=== PATIENT | male | born 1990 | race African-American/Black ===

== ENCOUNTER 2016-11-26 18:27 | Emergency (ER) | payer OTHER ==
[~2016-11-26] VITALS: Ht 165.1 cm; Wt 68.9 kg
[2016-11-26] MEDS ORDERED: NS 1,000 ML IV ONE (21:45)
[2016-11-26 22:04] LABS: BASO % 0.5 % (0.0-1.0); EOS # 0.2 K/mm3 (0.0-0.50); EOS % 3.7 % (0.0-3.0); LARGE UNSTAINED CELL # 0.2 K/mm3 (0.0-0.4); LYMPH # 2.8 K/mm3 (1.5-6.5); LYMPH % 55.8 % (24.0-44.0); MEAN CORPUSCULAR HEMOGLOBIN 32.1 pg (27.0-33.0); MEAN CORPUSCULAR VOLUME 91.9 fl (80.0-96.0); MONO # 0.2 K/mm3 (0.0-0.8); MONO % 4.5 % (0.0-5.0); NEUTROPHILS # 1.6 K/mm3 (1.8-7.7); NEUTROPHILS % 31.5 % (36.0-66.0); PLATELET COUNT, AUTOMATED 192 k/mm3 (150-450); RED CELL DISTRIBUTION WIDTH 12.3 % (11.5-14.5)
[2016-11-26 22:17] LABS: ANION GAP 5 MEQ/L (8-16); BLOOD UREA NITROGEN 15 MG/DL (7-18); CALCIUM LEVEL 8.5 MG/DL (8.5-10.1); CARBON DIOXIDE LEVEL 32 MEQ/L (21-32); CHLORIDE LEVEL 103 MEQ/L (98-107); GLOMERULAR FILTRATION RATE > 60.0 (>60); GLUCOSE, FASTING 104 MG/DL (70-105); SODIUM LEVEL 140 MEQ/L (136-145)
[2016-11-26 23:45] VITALS: O2SAT 98
[2016-11-27 00:05] VITALS: BP 132/77
[2016-11-27] MEDS ORDERED: ACETAMINOPHEN TAB 650MG DOSE (2X325MG) PO ONE (00:15)
--- NOTE | 2016-11-27 05:59 | ECGEPIP ---
Stationary ECG Study [facility] - ED Test Date: 2016-11-26 Pat Name: SAHRA PAREDES Department: Room: - Gender: M Side Guider: CostelloB: 1990 Requested By: WANDY De León Order Number: [id number] Reading MD: Vincenzo Osborne Measurements Intervals [place] Rate: 60 P: 55 NH: 155 QRS: 19 QRSD: 77 T: 6 QT: 362 QTc: 364 Interpretive Statements SINUS RHYTHM BENIGN EARLY REPOLARIZATION NSTTW ABNORMALITY NO PRIORS Electronically Signed On 11-27-2016 5:58:52 EDT by Vincenzo Osborne
== END 2016-11-27 00:17 | disposition home or self-care (01) ==
LOC: M ED 19:18
DX: I95.1 Orthostatic hypotension (principal)

== ENCOUNTER 2017-04-23 20:39 | Inpatient (IN) | payer OTHER ==
[~2017-04-23] VITALS: Ht 165.1 cm; Wt 72.7 kg
[2017-04-23 21:37] LABS: MEAN CORPUSCULAR HEMOGLOBIN 31.2 pg (27.0-33.0); MEAN CORPUSCULAR VOLUME 86.6 fl (80.0-96.0); RED CELL DISTRIBUTION WIDTH 11.9 % (11.5-14.5); WHITE BLOOD COUNT 6.6 10^3/uL (4.0-10.0)
[2017-04-23 22:14] LABS: ALBUMIN 4.1 GM/DL (3.2-5.2); ALBUMIN/GLOBULIN RATIO 1.32 (1.00-1.93); ALKALINE PHOSPHATASE 99 U/L (45-117); ALT/SGPT 26 U/L (12-78); ANION GAP 8 MEQ/L (8-16); AST/SGOT 23 U/L (15-37); BILIRUBIN,DIRECT 0.1 MG/DL (0.0-0.2); BILIRUBIN,TOTAL 0.5 MG/DL (0.2-1.0); BLOOD UREA NITROGEN 16 MG/DL (7-18); CALCIUM LEVEL 8.9 MG/DL (8.5-10.1); CARBON DIOXIDE LEVEL 27 MEQ/L (21-32); CHLORIDE LEVEL 105 MEQ/L (98-107); CREATININE FOR GFR 1.04 MG/DL (0.70-1.30); GLOMERULAR FILTRATION RATE > 60.0 (>60); GLUCOSE, FASTING 96 MG/DL (70-105); POTASSIUM SERUM 3.8 MEQ/L (3.5-5.1); SODIUM LEVEL 140 MEQ/L (136-145); TOTAL PROTEIN 7.2 GM/DL (6.4-8.2)
[2017-04-23 23:08] LABS: METHADONE URINE NEGATIVE (NEGATIVE)
--- NOTE | 2017-04-23 23:10 | REPUSA ---
CT of the head Clinical history: Headache. Injury. Technique: Multiple axial CT images were obtained through the head without administration of contrast . Findings: The ventricles and sulci are symmetric bilaterally. There is no evidence of acute hemorrhag e or infarct. There is no midline shift, mass effect, or extra-axial fluid collection. The osseous st ructures are unremarkable. The visualized paranasal sinuses and mastoid air cells are clear. Impression: Negative study.
--- NOTE | 2017-04-24 08:29 | ECGEPIP ---
Stationary ECG Study [facility] - ED Test Date: 2017-04-24 Pat Name: SAHRA PAREDES Department: Room: - Gender: M Mortgage Loan Reviewer: rn : 1990 Requested By: LUZ Farah Order Number: [id number] Reading MD: Kandace Apodaca Measurements Intervals [place] Rate: 52 P: 40 WI: 156 QRS: 3 QRSD: 94 T: 5 QT: 385 QTc: 359 Interpretive Statements SINUS BRADYCARDIA NSTTW ABNORMALITY ?EARLY REPOLARIZATION - CLINICAL CORRELATION Electronically Signed On 04-24-2017 8:29:09 EDT by Kandace Apodaca
[2017-04-24 16:55] VITALS: BP 133/89
[2017-04-24] MEDS ORDERED: OLANZapine ORAL DISINTEGRATING TAB 5MG PO PRN (17:45)
[2017-04-24] MEDS ORDERED: MAALOX 30 ML SUSP *UDC PO PRN (17:45)
[2017-04-24] MEDS ORDERED: traZODone 50 MG TAB PO PRN (17:45)
[2017-04-24] MEDS ORDERED: MOM 30ML SUSPENSION UDC PO PRN (17:45)
[2017-04-24] MEDS ORDERED: ACETAMINOPHEN TAB 650MG DOSE (2X325MG) PO PRN (17:45)
[2017-04-25 06:00] VITALS: BP 158/67
[2017-04-25 06:52] LABS: MEAN CORPUSCULAR HEMOGLOBIN 31.2 pg (27.0-33.0); MEAN CORPUSCULAR HGB CONC 35.4 g/dl (32.0-36.5); MEAN CORPUSCULAR VOLUME 88.2 fl (80.0-96.0); RED CELL DISTRIBUTION WIDTH 11.9 % (11.5-14.5); WHITE BLOOD COUNT 5.4 10^3/uL (4.0-10.0)
[2017-04-25 07:09] LABS: ALBUMIN/GLOBULIN RATIO 1.25 (1.00-1.93); ALKALINE PHOSPHATASE 105 U/L (45-117); ALT/SGPT 25 U/L (12-78); ANION GAP 8 MEQ/L (8-16); AST/SGOT 15 U/L (15-37); BILIRUBIN,TOTAL 0.6 MG/DL (0.2-1.0); BLOOD UREA NITROGEN 13 MG/DL (7-18); CALCIUM LEVEL 9.3 MG/DL (8.5-10.1); CARBON DIOXIDE LEVEL 30 MEQ/L (21-32); CHLORIDE LEVEL 103 MEQ/L (98-107); CREATININE FOR GFR 1.15 MG/DL (0.70-1.30); GLOMERULAR FILTRATION RATE > 60.0 (>60); GLUCOSE, FASTING 101 MG/DL (70-105); POTASSIUM SERUM 4.2 MEQ/L (3.5-5.1); SODIUM LEVEL 141 MEQ/L (136-145); TOTAL PROTEIN 7.2 GM/DL (6.4-8.2)
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
[2017-04-25 18:00] VITALS: BP 141/70
[2017-04-25 20:00] VITALS: BP 138/76
[2017-04-25] MEDS: MIRTAZAPINE 15 MG TAB PO SCH (20:31)
[2017-04-26 07:00] VITALS: BP 137/59
--- NOTE | 2017-04-26 09:31 | MHIPNPDOC ---
[facility] Progress Note Progress Note DATE OF SERVICE: 04/26/17 HISTORY: day 3 of admission for vague suicidal thoughts, self-harm (banging head ) VITAL SIGNS: See below. NEW TEST RESULTS: na CURRENT MEDICATIONS: See below. MENTAL STATUS EXAMINATION: General appearance: Patient is a 26-year old male, who is short in stature, wears glasses, dark complexion, good eye contact, hospital attire, cooperative Speech: spontaneous, southern accent. Thought processes: linear Thought content: appropriate Abstract reasoning and computation: good Description of associations: good Description of abnormal or psychotic thoughts: no psychotic symptoms illicited, Judgment: fair Insight: good Orientation: well oriented. Recent and remote memory: fair, does not recall what happened after he banged his head. CT scan done here. Attention span and concentration: mostly good but if distracted at work or interrupted he does not perform well and his concentration is lacking. Fund of knowledge: Full. Mood: "worried about job" Affect: anxious. DIAGNOSES: 1. adjustment disorder with mixed anxiety and depression 2. insomnia ASSESSMENT:EMI meeting at 11:30 today, pt participated fully and explained his thoughts regarding his work performance. He indicated he had a conversation last night with a peer who is willing to step in and give him some support. Abilio feels he needs to set aside his negative thinking and his lack of self- confidence and he will do a better job. He indicated he is no longer working 2 jobs as previously thought. He received information about his PT test that he was not aware of from [employer]. Overall he feels more at ease and confident he can return to work and do the job he is expected to do. Pt is not feeling suicidal or homicidal. He reports improved sleep with Mirtazapine but needs a few days to get used to it. denies anxiety and depression. Attending programming. ADL's good. MANAGEMENT PLAN: monitor sleep, enc self-esteem and self-confidence, positive thinking, milieu therapy. Will likely be ready for discharge on Saturday. Since EMI meeting completed will only need to have escort. TIME SPENT: 25 minutes. Vital Signs Vital Signs Date Time Temp Pulse Resp B/P (MAP) Pulse Ox O2 Delivery O2 Flow Rate FiO2 04/26/17 07:00 98.6 62 18 137/59 (85) 04/25/17 11:26 Room Air 04/24/17 15:01 98 Current Medications Current Medications Acetaminophen (Tylenol Tab) 650 mg Q6HP PRN PO HEADACHE or DISCOMFORT Last administered on 04/25/17 12:21; Start 04/24/17 at 17:45; Stop 05/24/17 at 17 :44 Al Hydrox/Mg Hydrox/Simethicone (Mylanta) 30 ml Q4HP PRN PO HEARTBURN/ INDIGESTION; Start 04/24/17 at 17:45; Stop 05/24/17 at 17:44 Home Med (Med Rec Complete!) ASDIRECTED XX ; Start 04/24/17 at 10:00; Stop at 10:00; Status DC Magnesium Hydroxide (Milk Of Magnesia) 30 ml DAILYPRN PRN PO CONSTIPATION; Start 04/24/17 at 17:45; Stop 05/24/17 at 17:44 Mirtazapine (Remeron) 15 mg QHS PO Last administered on 04/25/17 20:31; Start 04/25/17 at 21:00; Stop 05/25/17 at 20:59 Olanzapine (ZyPREXA ZYDIS) 5 mg Q4HP PRN PO ANXIETY/AGITATION; Start 04/24 at 17:45; Stop 05/24/17 at 17:44 Trazodone HCl (Desyrel) 50 mg QHSP PRN PO INSOMNIA; Start 04/24/17 at 17:45; Stop 05/24/17 at 17:44 Allergies Coded Allergies: No Known Allergies (Unverified , 11/26/16) Mona Daniels Apr 26, 2017 09:31
[2017-04-26 18:00] VITALS: BP 128/58
[2017-04-26] MEDS: MIRTAZAPINE 15 MG TAB PO SCH (20:47)
[2017-04-27 07:09] VITALS: BP 131/65
--- NOTE | 2017-04-27 15:46 | MHIPN ---
DATE: 04/27/2017 CHIEF COMPLAINT: Feels better. SUBJECTIVE: Seen for followup in the presence of staff. Says feels better, less anxious, less depressed, more confident. Has been in touch with his family on a regular basis. MENTAL STATUS EXAMINATION: He is neat and cooperative. No agitation. Coherent. Affect is reactive, fairly broad. He denies any thoughts of harming himself or anyone else. No evidence of any psychosis. Cognition grossly intact. Judgment good. Insight is possibly improved. ASSESSMENT: Adjustment disorder with mixed anxiety and depression. PLAN: Continue current care and observations. At present, would encourage patient to participate in activities in the unit. VITAL SIGNS: Blood pressure 131/65, pulse 72, temperature 98.5.
[2017-04-27 18:24] VITALS: BP 130/77
[2017-04-27] MEDS: MIRTAZAPINE 15 MG TAB PO SCH (20:52)
[2017-04-28 06:00] VITALS: BP 131/66
[2017-04-28 09:28] VITALS: BP 131/66
--- NOTE | 2017-04-28 17:40 | MHIPN ---
DATE: 04/28/2017 CHIEF COMPLAINT: Feels good. SUBJECTIVE: Seen for followup. Indicates feels good, and is looking forward to leaving the hospital, moods are better. MENTAL STATUS EXAMINATION: Neat and cooperative. No agitation. No psychomotor retardation. He is coherent. Affect is reactive, fairly broad. No evidence of any thoughts of harming himself or anyone else. Cognition grossly intact. Judgment good. Insight improved. ASSESSMENT: Adjustment disorder with mixed anxiety and depression. PLAN: Continue current care, and I would suggest reassessing the need for an antidepressant. VITAL SIGNS: Blood pressure 131/66, pulse 55, temperature 96.8.
[2017-04-28 18:00] VITALS: BP 126/66
[2017-04-28] MEDS: MIRTAZAPINE 15 MG TAB PO SCH (21:05)
[2017-04-29 06:34] VITALS: BP 129/55
--- NOTE | 2017-04-29 08:55 | MHDSPDOC ---
[facility] Discharge Summary Discharge Summary DATE OF ADMISSION: Apr 24, 2017 at 15:22 DATE OF DISCHARGE: Apr 29, 2017 DISCHARGE DIAGNOSES: 1. adjustment disorder with mixed anxiety and depression 2. insomnia REASON FOR ADMISSION: Patient is a 26-year-old male, who was directed to seek admission by his EMI who feared he was suicidal. Pt was upset at work and started banging his head on the wall, a locker and some other objects out of frustration. Pt denies plan or intent of suicide but was unable to contract for safety in the ED. Pt has no prior psychiatric history. Pts problems began after he failed his PT test due to hip pain. He was referred to PT which helped but he has not had his re-test yet. 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 He was not able to physically attend the inventory review with command when the previous person left because he had to attend to the cooking duties. Since that person's departure and his demands fulfilling 2 roles he feels he is not performing well at either job. He is overwhelmed, forgetting things, making errors, not sleeping, feels very stressed and feels he cannot leave his job to implement stress reduction techniques of deep breathing or going for a walk. If things are going to continue this way he would prefer to leave his life and resume his education in business administration. CONSULTANTS INVOLVED:na TREATMENT AND PROGRESS ON THE UNIT : pt did well on the unit., he cooperated with attending programming and following unit rules. He interacted appropriately with peers and staff. No behavior challenges. Pt ate and slept well. Pt had sleeping problems when he first arrived that were immediately and effectively address by adding mirtazapine. No side effects to medication. Sleep improvement continued until he was able to fall asleep quickly and remain asleep. He asked to be discharged on the medication. Pts mood improved shortly after a EMI meeting where he could represent his side off the story HOSPITAL COURSE: uneventful, VS remained stable, Labs WNL. DISCHARGE ASSESSMENT:pt is not suicidal or homicidal. He is looking forward to getting back into life. MENTAL STATUS EXAMINATION ON DISCHARGE: General appearance: Patient is a 26-year old male, who is short in stature, wears glasses, dark complexion, good eye contact, polo shirt and shorts, cooperative Speech: spontaneous, southern accent. Thought processes: linear Thought content: appropriate Abstract reasoning and computation: good Description of associations: good Description of abnormal or psychotic thoughts: no psychotic symptoms illicited, Judgment: fair Insight: good Orientation: well oriented. Recent and remote memory: fair, does not recall what happened after he banged his head. CT scan done here. Attention span and concentration: mostly good but if distracted at work or interrupted he does not perform well and his concentration is lacking. Fund of knowledge: Full. Mood: euthymic Affect: congruent, smiling MEDICATIONS ON DISCHARGE: - Mirtazapine for insomnia PLAN/FOLLOWUP ARRANGEMENTS: [facility] for med mgt and therapy, meds could be done by PCP. The amount of time spent in the coordination of care for this patient was approximately 28 minutes. Vital Signs/I&Os Vital Signs Date Time Temp Pulse Resp B/P (MAP) Pulse Ox O2 Delivery O2 Flow Rate FiO2 04/29/17 06:34 97.9 63 20 129/55 (79) 04/28/17 09:28 98 Room Air Medications Scheduled Mirtazapine (Mirtazapine) 15 Mg Tab, 15 MG PO QHS for INSOMNIA for 7 Days, #7 Allergies Coded Allergies: No Known Allergies (Unverified , 11/26/16) Mona Daniels Apr 29, 2017 08:55
[2017-04-29] MEDS ORDERED: MIRT15TA3 PO (08:58)
== END 2017-04-29 13:30 | disposition home or self-care (01) | DRG 882 ==
LOC: M ED 20:39 → M ED INP 04-24 15:22 → M ED 04-24 15:35 → M PSY 04-24 15:45
PROVIDERS: ADMIT Psychiatry & Neurology Psychiatry; ATTEND Psychiatry & Neurology Psychiatry
DX: F43.23 Adjustment disorder with mixed anxiety and depressed mood (principal); J45.909 Unspecified asthma, uncomplicated

== ENCOUNTER 2017-08-13 08:47 | Emergency (ER) | payer OTHER ==
[2017-08-13] MEDS: ONDANSETRON 4 MG ORAL DISINTEGRATING TAB (S0181) PO (09:45)
[2017-08-13 10:31] LABS: INFLUENZA A AMPLIFICATION NEGATIVE (NEGATIVE); INFLUENZA B AMPLIFICATION NEGATIVE (NEGATIVE)
== END 2017-08-13 11:16 | disposition home or self-care (01) ==
LOC: M ED 08:47
DX: R11.2 Nausea with vomiting, unspecified (principal); R19.7 Diarrhea, unspecified; Z87.891 Personal history of nicotine dependence; Z79.899 Other long term (current) drug therapy
CPT/HCPCS: 87507

== ENCOUNTER 2017-11-15 16:13 | Emergency (ER) | payer OTHER ==
[2017-11-15] MEDS: METHOCARBAMOL 1,000 MG/10 ML VIAL (J2800) IM (17:11)
[2017-11-15] MEDS: GABAPENTIN 300 MG CAP PO (18:11)
== END 2017-11-15 18:22 | disposition home or self-care (01) ==
LOC: M ED 16:13
DX: M62.830 Muscle spasm of back (principal); Z87.891 Personal history of nicotine dependence; Z88.8 Allergy status to other drugs, medicaments and biological substances; Z79.899 Other long term (current) drug therapy
CPT/HCPCS: J2800

== ENCOUNTER → 2017-11-21 | Outpatient (CLI) | payer OTHER ==
[~2017-11-21] MED LIST: CONRAY-43 43% 50ML VIAL (Q9960) As Ordered; LIDOCAINE 1% MDV 20ML VIAL As Ordered; TRIAMCINOLONE ACETONIDE SUSP 40 MG/ML VIAL (J3301) As Ordered
== END ==
LOC: M RADPRO 09:55
DX: M25.552 Pain in left hip (principal); S73.192A Other sprain of left hip, initial encounter; Y92.89 Other specified places as the place of occurrence of the external cause; Y93.89 Activity, other specified; X58.XXXA Exposure to other specified factors, initial encounter; Y99.8 Other external cause status
CPT/HCPCS: 20610

== ENCOUNTER → 2018-05-12 | Outpatient (REF) | payer OTHER ==
[2018-05-12 14:14] LABS: BASO % 0.2 % (0.0-1.0); EOS # 0.1 10^3/uL (0.0-0.50); EOS % 1.4 % (0.0-3.0); HEMATOCRIT 44.9 % (42.0-52.0); HEMOGLOBIN 15.6 g/dl (13.5-17.5); IMMATURE GRANULOCYTE % 0.5 % (0-3.0); LYMPH # 2.2 10^3/uL (1.5-6.5); LYMPH % 36.9 % (24.0-44.0); MEAN CORPUSCULAR HEMOGLOBIN 30.5 pg (27.0-33.0); MEAN CORPUSCULAR HGB CONC 34.7 g/dl (32.0-36.5); MEAN CORPUSCULAR VOLUME 87.7 fl (80.0-96.0); MONO # 0.4 10^3/uL (0.0-0.8); MONO % 5.9 % (0.0-5.0); NEUTROPHILS # 3.3 10^3/uL (1.8-7.7); NEUTROPHILS % 55.1 % (36.0-66.0); PLATELET COUNT, AUTOMATED 210 10^3/uL (150-450); RED BLOOD COUNT 5.12 10^6/uL (4.30-6.10); RED CELL DISTRIBUTION WIDTH 11.9 % (11.5-14.5); WHITE BLOOD COUNT 5.9 10^3/uL (4.0-10.0)
[2018-05-12 14:57] LABS: ALBUMIN/GLOBULIN RATIO 1.05 (1.00-1.93); ALKALINE PHOSPHATASE 104 U/L (45-117); ALT/SGPT 29 U/L (12-78); ANION GAP 10 MEQ/L (8-16); AST/SGOT 15 U/L (7-37); BILIRUBIN,TOTAL 0.4 MG/DL (0.2-1.0); BLOOD UREA NITROGEN 18 MG/DL (7-18); CALCIUM LEVEL 9.2 MG/DL (8.5-10.1); CARBON DIOXIDE LEVEL 27 MEQ/L (21-32); CHLORIDE LEVEL 102 MEQ/L (98-107); CREATININE FOR GFR 1.15 MG/DL (0.70-1.30); GLOMERULAR FILTRATION RATE > 60.0 (>60); GLUCOSE, FASTING 76 MG/DL (70-100); POTASSIUM SERUM 4.5 MEQ/L (3.5-5.1); RHEUMATOID FACTOR QUANT < 10.0 IU/ML (<15.0); SODIUM LEVEL 139 MEQ/L (136-145); TOTAL 25(OH) VITAMIN D 43.7 NG/ML (30.0-100.0); TOTAL PROTEIN 7.8 GM/DL (6.4-8.2)
[2018-05-12 15:14] LABS: ERYTHROCYTE SEDIMENTATION RATE 5 mm/hr (0-15)
[2018-05-13 14:13] LABS: ANTINUCLEAR ANTIBODIES DIRECT Negative (Negative)
== END ==
LOC: M LABNEURO 09:10
DX: R51 Headache (principal)

== ENCOUNTER 2018-06-23 09:22 | Inpatient (IN) | payer OTHER ==
[2018-06-23] MEDS: NICOTINE 21MG/24HR 1 EA TRANSDERMAL TD (09:00)
[2018-06-23 10:21] LABS: HEMATOCRIT 43.8 % (42.0-52.0); HEMOGLOBIN 15.5 g/dl (13.5-17.5); MEAN CORPUSCULAR HEMOGLOBIN 30.9 pg (27.0-33.0); MEAN CORPUSCULAR HGB CONC 35.4 g/dl (32.0-36.5); MEAN CORPUSCULAR VOLUME 87.3 fl (80.0-96.0); PLATELET COUNT, AUTOMATED 178 10^3/uL (150-450); RED BLOOD COUNT 5.02 10^6/uL (4.30-6.10); WHITE BLOOD COUNT 4.6 10^3/uL (4.0-10.0)
[2018-06-23 11:17] LABS: ACETAMINOPHEN LEVEL < 2.0 UG/ML (10.0-30.0); ALBUMIN 3.9 GM/DL (3.2-5.2); ALBUMIN/GLOBULIN RATIO 1.18 (1.00-1.93); ALKALINE PHOSPHATASE 123 U/L (45-117); ALT/SGPT 31 U/L (12-78); ANION GAP 8 MEQ/L (8-16); AST/SGOT 16 U/L (7-37); BILIRUBIN,DIRECT 0.1 MG/DL (0.0-0.2); BILIRUBIN,TOTAL 0.3 MG/DL (0.2-1.0); BLOOD UREA NITROGEN 18 MG/DL (7-18); CALCIUM LEVEL 8.8 MG/DL (8.5-10.1); CARBON DIOXIDE LEVEL 30 MEQ/L (21-32); CHLORIDE LEVEL 103 MEQ/L (98-107); CREATININE FOR GFR 1.16 MG/DL (0.70-1.30); ETHYL ALCOHOL (ETHANOL) < 0.003 % (0.000-0.010); GLOMERULAR FILTRATION RATE > 60.0 (>60); GLUCOSE, FASTING 97 MG/DL (70-100); POTASSIUM SERUM 3.9 MEQ/L (3.5-5.1); SALICYLATE LEVEL < 1.7 MG/DL (5.0-30.0); SODIUM LEVEL 141 MEQ/L (136-145); THYROID STIMULATING HORMONE 0.359 uIU/ML (0.358-3.740); TOTAL PROTEIN 7.2 GM/DL (6.4-8.2)
[2018-06-23 11:40] LABS: AMPHETAMINES LEVEL URINE NEGATIVE (NEGATIVE); BARBITURATES URINE NEGATIVE (NEGATIVE); BENZODIAZEPINES URINE NEGATIVE (NEGATIVE); CANNABINOIDS URINE NEGATIVE (NEGATIVE); COCAINE METABOLITE URINE NEGATIVE (NEGATIVE); METHADONE URINE NEGATIVE (NEGATIVE); OPIATES URINE NEGATIVE (NEGATIVE); PHENCYCLIDINE URINE NEGATIVE (NEGATIVE)
[2018-06-23] MEDS ORDERED: MAALOX 30 ML SUSP *UDC PO (14:15)
[2018-06-23] MEDS ORDERED: MOM 30ML SUSPENSION UDC PO (14:15)
[2018-06-23] MEDS ORDERED: traZODone 50 MG TAB PO (14:15)
[2018-06-23] MEDS: BACLOFEN 10 MG TAB PO (21:55)
[2018-06-23] MEDS: GABAPENTIN 100 MG CAP PO (21:55)
[2018-06-24] MEDS: METAXALONE 800 MG TABLET PO (08:29)
[2018-06-24] MEDS: BACLOFEN 10 MG TAB PO ×2 (08:29→20:54)
[2018-06-24] MEDS: hydroCHLOROthiazide 25 MG TAB PO (08:29)
[2018-06-24] MEDS: GABAPENTIN 100 MG CAP PO ×3 (08:29→20:53)
[2018-06-24] MEDS: NICOTINE 21MG/24HR 1 EA TRANSDERMAL TD (08:30)
[2018-06-24] MEDS: ACETAMINOPHEN TAB 650MG DOSE (2X325MG) PO (14:43)
[2018-06-24] MEDS: QUEtiapine FUMARATE 50 MG TAB PO (20:54)
[2018-06-25] MEDS: NICOTINE 21MG/24HR 1 EA TRANSDERMAL TD (08:35)
[2018-06-25] MEDS: METAXALONE 800 MG TABLET PO (08:36)
[2018-06-25] MEDS: hydroCHLOROthiazide 25 MG TAB PO (08:38)
[2018-06-25] MEDS: GABAPENTIN 100 MG CAP PO ×3 (08:38→20:21)
[2018-06-25] MEDS: BACLOFEN 10 MG TAB PO ×2 (08:38→20:21)
[2018-06-25] MEDS: QUEtiapine FUMARATE 50 MG TAB PO (20:21)
[2018-06-26] MEDS: hydroCHLOROthiazide 25 MG TAB PO (07:01)
[2018-06-26] MEDS: BACLOFEN 10 MG TAB PO ×2 (08:34→21:05)
[2018-06-26] MEDS: GABAPENTIN 100 MG CAP PO ×3 (08:34→21:05)
[2018-06-26] MEDS: METAXALONE 800 MG TABLET PO (08:34)
[2018-06-26] MEDS: NICOTINE 21MG/24HR 1 EA TRANSDERMAL TD (08:35)
[2018-06-26] MEDS: QUEtiapine FUMARATE 25 MG TAB PO (21:05)
[2018-06-27] MEDS: METAXALONE 800 MG TABLET PO (06:38)
[2018-06-27] MEDS: hydroCHLOROthiazide 25 MG TAB PO (06:38)
[2018-06-27] MEDS: GABAPENTIN 100 MG CAP PO (06:38)
[2018-06-27] MEDS: BACLOFEN 10 MG TAB PO (06:38)
[2018-06-27] MEDS: ARIPiprazole 15 MG TAB (AbiLIFY) PO (07:09)
[2018-06-27] MEDS: NICOTINE 21MG/24HR 1 EA TRANSDERMAL TD (07:50)
== END 2018-06-27 07:45 | disposition home or self-care (01) | DRG 885 ==
LOC: M ED 09:22 → M ED INP 14:15 → M PSY 14:43
DX: F31.81 Bipolar II disorder (principal); R45.851 Suicidal ideations; F41.1 Generalized anxiety disorder; J45.909 Unspecified asthma, uncomplicated; I10 Essential (primary) hypertension; M54.5 Low back pain; G89.29 Other chronic pain; M54.2 Cervicalgia; Z79.899 Other long term (current) drug therapy; Z88.8 Allergy status to other drugs, medicaments and biological substances

== ENCOUNTER 2019-08-28 22:22 | Emergency (ER) | payer OTHER ==
[~2019-08-28] VITALS: Ht 165.1 cm; Wt 75.0 kg
[~2019-08-28 22:22] MED LIST changes: +ARIP1TAB10 PO; +BACL10TA2; +BUPR150T3; -CONRAY-43 43% 50ML VIAL (Q9960) As Ordered; +CYCL10TA; +D 50CAP; +DICL75TA; +FLUO20CA22; +GABA-1171; +GABA-843; +HYDR25TAB; -LIDOCAINE 1% MDV 20ML VIAL As Ordered; +META1TAB22; +MIRT15TA3 PO; +QUET1TAB7 PO; -TRIAMCINOLONE ACETONIDE SUSP 40 MG/ML VIAL (J3301) As Ordered; +ZOFR4TAB14 PO
--- NOTE | 2019-08-28 23:42 | REPVR ---
PROCEDURE INFORMATION: Exam: CT Head Without Contrast Exam date and time: 08/28/2019 11:05 PM Age: 29 years old Clinical indication: Injury or trauma; Fall; Initial encounter; Concussion / head injury; Additional info: Syncope TECHNIQUE: Imaging protocol: Computed tomography of the head without contrast. Radiation optimization: All CT scans at this facility use at least one of these dose optimization techniques: automated exposure control; mA and/or kV adjustment per patient size (includes targeted exams where dose is matched to clinical indication); or iterative reconstruction. COMPARISON: CT Head without contrast 04/23/2017 10:40 PM FINDINGS: Brain: Normal. No hemorrhage. Unremarkable white matter. No mass effect. Ventricles: Normal. No ventriculomegaly. Bones/joints: Unremarkable. No acute fracture. Sinuses: Visualized sinuses are unremarkable. No fluid levels. Mastoid air cells: Visualized mastoid air cells are well aerated. Soft tissues: Unremarkable. IMPRESSION: No acute intracranial abnormality. Electronically signed by: Baltazar Carmona On 08/28/2019 23:41:57 PM
--- NOTE | 2019-08-29 00:11 | REPVR ---
PROCEDURE INFORMATION: Exam: CT Cervical Spine Without Contrast Exam date and time: 08/28/2019 11:05 PM Age: 29 years old Clinical indication: Neck pain; Patient HX: Fall; Additional info: Syncope TECHNIQUE: Imaging protocol: Computed tomography images of the cervical spine without contrast. Radiation optimization: All CT scans at this facility use at least one of these dose optimization techniques: automated exposure control; mA and/or kV adjustment per patient size (includes targeted exams where dose is matched to clinical indication); or iterative reconstruction. COMPARISON: CT Spine,cervical w/o contrast 11/15/2017 5:15 PM FINDINGS: Vertebrae: No acute fracture. Reversal of normal cervical lordosis likely secondary to muscular spasm or positioning. Discs/Spinal canal/Neural foramina: No disc herniations. No spinal canal stenosis. No neural foraminal narrowing. Soft tissues: Unremarkable. Lungs: Lung apices are normal. IMPRESSION: No acute findings. Electronically signed by: Purnima Jordan On 08/29/2019 00:11:15 AM
[2019-08-29 00:15] LABS: BASO % 0.3 % (0.0-1.0); EOS # 0.1 10^3/uL (0.0-0.5); HEMATOCRIT 43.1 % (42.0-52.0); HEMOGLOBIN 15.5 g/dl (13.5-17.5); LYMPH % 33.7 % (24.0-44.0); MEAN CORPUSCULAR HEMOGLOBIN 30.8 pg (27.0-33.0); MEAN CORPUSCULAR VOLUME 85.7 fl (80.0-96.0); MONO # 0.5 10^3/uL (0.0-0.8); MONO % 7.6 % (0.0-5.0); NEUTROPHILS # 3.3 10^3/uL (1.5-8.5); NEUTROPHILS % 55.6 % (36.0-66.0); PLATELET COUNT, AUTOMATED 207 10^3/uL (150-450); RED BLOOD COUNT 5.03 10^6/uL (4.30-6.10); WHITE BLOOD COUNT 5.9 10^3/uL (4.0-10.0)
[2019-08-29 00:20] LABS: AMPHETAMINES LEVEL URINE NEGATIVE (NEGATIVE); BARBITURATES URINE NEGATIVE (NEGATIVE); BENZODIAZEPINES URINE NEGATIVE (NEGATIVE); CANNABINOIDS URINE NEGATIVE (NEGATIVE); COCAINE METABOLITE URINE NEGATIVE (NEGATIVE); METHADONE URINE NEGATIVE (NEGATIVE); OPIATES URINE NEGATIVE (NEGATIVE); PHENCYCLIDINE URINE NEGATIVE (NEGATIVE)
[2019-08-29 00:35] LABS: BLOOD UREA NITROGEN 14 MG/DL (7-18); CALCIUM LEVEL 8.7 MG/DL (8.5-10.1); CARBON DIOXIDE LEVEL 28 MEQ/L (21-32); CHLORIDE LEVEL 105 MEQ/L (98-107); CREATININE FOR GFR 0.98 MG/DL (0.70-1.30); ETHYL ALCOHOL (ETHANOL) < 0.003 % (0.000-0.010); GLOMERULAR FILTRATION RATE > 60.0 (>60); GLUCOSE, FASTING 105 MG/DL (70-100); POTASSIUM SERUM 3.8 MEQ/L (3.5-5.1); SODIUM LEVEL 138 MEQ/L (136-145)
[2019-08-29 01:46] VITALS: BP 140/74
--- NOTE | 2019-08-29 08:28 | REP ---
Right hand four views : There is no fracture or dislocation. Mineralization and joint spaces are normal. There are no calcifications or foreign bodies. Impression: Negative right hand . Electronically Signed by Virgilio Melton MD 08/29/2019 08:19 A
--- NOTE | 2019-08-30 20:41 | ECGEPIP ---
[facility] - ED Test Date: 2019-08-28 Pat Name: SAHRA PAREDES Department: Room: - Gender: Male Groundskeeper: er : 1990 Requested By: WANDY De León Order Number: [id number] Reading MD: Kandace Apodaca Measurements Intervals [place] Rate: 75 P: 48 ID: [id number] QRS: 4 QRSD: 86 T: 10 QT: 328 QTc: 368 Interpretive Statements SINUS RHYTHM WITH SINUS ARRHYTHMIA INCREASAED RATE 06/24/18 Electronically Signed on 08-30-2019 20:41:23 EST by Kandace Apodaca
== END 2019-08-29 01:50 | disposition home or self-care (01) ==
LOC: M ED 22:22
DX: Z04.1 Encounter for examination and observation following transport accident (principal); R55 Syncope and collapse; S63.91XA Sprain of unspecified part of right wrist and hand, initial encounter; V89.2XXA Person injured in unspecified motor-vehicle accident, traffic, initial encounter; Y92.89 Other specified places as the place of occurrence of the external cause; Y93.89 Activity, other specified; Y99.8 Other external cause status; Z88.8 Allergy status to other drugs, medicaments and biological substances; Z79.899 Other long term (current) drug therapy
CPT/HCPCS: 70450; 72125; 73130; 80048; 80307; 84443; 85025; 93005; 93041; 94760; 99285; G0480

== ENCOUNTER → 2021-01-22 | Outpatient (CLI) | payer OTHER ==
[~2021-01-22] MED LIST changes: +BUPR150T12; -BUPR150T3; +CYCL-707; -CYCL10TA; +GABA-282; -GABA-843; +HYDR-3490; -HYDR25TAB; -QUET1TAB7 PO; +QUET25TA3 PO
--- NOTE | 2021-01-22 19:04 | REP ---
INDICATION: RADHA CHRONIC HIP PAIN. COMPARISON: None. TECHNIQUE: Whole pelvic T1 and STIR images with small [id number] fat-suppressed T2 axial coronal and sagittal images for each hip. FINDINGS: The whole pelvic marrow sequences demonstrate homogeneous L5, sacral and iliac marrow with no abnormalities visible. The acetabular, ischial and hip joint marrow also was grossly unremarkable. There is no evidence of AVN, bone bruise or fracture in either hip. See no hip joint effusion. I see no significant trochanteric tendon or bursitis about either hip at the greater trochanter. Intrinsic and extrinsic hip, pelvic, gluteal and thigh muscles were grossly symmetric and unremarkable without signal abnormality. There is no inguinal adenopathy on either side or mass. Right hip: No evidence of a joint effusion. There is no significant chondromalacia or joint space narrowing. Some subtle irregularity about the superior labrum may reflect some mild labral degeneration. Some linear signal at the acetabular margin with the cortex is seen in a pattern suggesting sublabral sulcus. There is no paralabral sulcus above the joint line. See no loose body. The obturator internus, iliopsoas and hamstring tendons and their insertions were grossly unremarkable. Axial images show anterior and posterior sublabral sulci in a symmetric appearance to the left hip on axial projection. I cannot confirm a definite labral tear. I do not see femoral head morphologic abnormality. Left hip: No evidence of a joint effusion. There is no significant chondromalacia or joint space narrowing. Subtle irregularity of labral undersurface may reflect some degeneration and there is also a sublabral sulcus suggested anteriorly and posteriorly axial to lesser extent coronal images. No loose body or osteochondral defect. There is no paralabral sulcus. See no paralabral cyst appearance of the labrum on both sides is identical. The obturator internus, ileo psoas and hamstring tendons and their insertions are grossly unremarkable. I cannot confirm a definite labral tear. I do not see femoral head morphologic abnormality. IMPRESSION: 1. Bilateral hips show minor irregularity of the acetabular labrum that might reflect some mild degeneration. There is also symmetric pattern of anterior and posterior bright linear signal foci on T2 most consistent with sublabral sulcus. I cannot confirm a tear. There is no morphologic abnormality of either femoral head. No AVN, fracture or other marrow signal finding in either hip. 2. No joint effusion or loose body. No tendinobursitis at the greater trochanters. Other tendons and insertions about the hips symmetric and normal. <Electronically signed by Brandt Young > 01/22/21 [id number]
== END ==
LOC: M RAD 14:31
DX: M25.559 Pain in unspecified hip (principal)

== ENCOUNTER → 2021-02-22 | Outpatient (CLI) | payer OTHER ==
[~2021-02-22] MED LIST changes: +QUET1TAB17 PO; -QUET25TA3 PO
--- NOTE | 2021-02-22 20:29 | REP ---
INDICATION: PAIN. COMPARISON: None. TECHNIQUE: Frontal view of the pelvis with neutral and frog-lateral views of the right and left hip. FINDINGS: No evidence for acute fracture or dislocation. Bilateral hip joints are relatively symmetric and age-appropriate. No significant congenital or overt degenerative changes are appreciated. Surrounding soft tissues normal. IMPRESSION: Essentially normal symmetric appearance of the pelvis/hips. <Electronically signed by Dony Hernandez > 02/22/212024
== END ==
LOC: M SOG 15:13
PROVIDERS: ATTEND Orthopaedic Surgery Adult Reconstructive Orthopaedic Surgery
DX: M25.559 Pain in unspecified hip (principal)

== ENCOUNTER → 2021-07-28 | Outpatient (CLI) | payer OTHER ==
[~2021-07-28] MED LIST changes: +ACET1TAB55 PO; +BUSP10TA PO; +D31000TA2 PO; +DIVA250T67 PO; +FLON1SPR; +GOOD8.6T2 PO; +LORA-243 PO; +REFR0.5D8 OU; +WELLTAB40 PO
== END ==
LOC: M LABSMTC 11:21
PROVIDERS: ATTEND Anesthesiology
DX: Z01.812 Encounter for preprocedural laboratory examination (principal); Z20.822 Contact with and (suspected) exposure to COVID-19

== ENCOUNTER 2021-08-02 08:49 | Day surgery (SDC) | payer OTHER ==
[~2021-08-02] VITALS: Ht 165.1 cm; Wt 79.4 kg
[~2021-08-02 08:49] MED LIST changes: +NS 1,000 ML IV ONE
[2021-08-02] MEDS ORDERED: fentaNYL 100 MCG/2 ML INJECTION (J3010) As Ordered ONE (11:06)
[2021-08-02] MEDS ORDERED: propofoL 200 MG/20 ML VIAL As Ordered ONE ×2 (11:06→11:30)
[2021-08-02] MEDS ORDERED: LIDOCAINE 2% 100MG/5ML SDV (FOR ANES.) As Ordered ONE (11:06)
[2021-08-02] MEDS ORDERED: ESMOLOL INJ 100MG/10ML VIAL As Ordered ONE (12:20)
[2021-08-02 12:31] VITALS: BP 135/72
== END 2021-08-02 12:33 | disposition home or self-care (01) ==
LOC: M OPP 08:49
PROVIDERS: ATTEND Surgery
DX: K59.00 Constipation, unspecified (principal); K31.89 Other diseases of stomach and duodenum; R10.13 Epigastric pain; R13.10 Dysphagia, unspecified; Z79.899 Other long term (current) drug therapy
CPT/HCPCS: 43239; 45378; 88305; J3010

== ENCOUNTER → 2022-08-28 | Outpatient (CLI) | payer OTHER ==
[~2022-08-28] MED LIST changes: -D31000TA2 PO; -NS 1,000 ML IV ONE; +VITA100093 PO
[2022-08-28 18:49] LABS: HEMATOCRIT 43.7 % (42.0-52.0); HEMOGLOBIN 15.1 g/dl (13.5-17.5); MEAN CORPUSCULAR HEMOGLOBIN 30.6 pg (27.0-33.0); MEAN CORPUSCULAR HGB CONC 34.6 g/dl (32.0-36.5); MEAN CORPUSCULAR VOLUME 88.6 fl (80.0-96.0); PLATELET COUNT, AUTOMATED 166 10^3/uL (150-450); RED BLOOD COUNT 4.93 10^6/uL (4.30-6.10); WHITE BLOOD COUNT 4.4 10^3/uL (4.0-10.0)
[2022-08-28 19:12] LABS: BLOOD UREA NITROGEN 17 MG/DL (9-23); CALCIUM LEVEL 8.8 MG/DL (8.5-10.1); CARBON DIOXIDE LEVEL 30 MMOL/L (20-31); CHLORIDE LEVEL 102 MMOL/L (98-107); GLUCOSE, FASTING 88 MG/DL (60-100); SODIUM LEVEL 138 MMOL/L (136-145)
[2022-08-28 20:00] LABS: GLOMERULAR FILTRATION RATE > 60.0 (>60)
== END ==
LOC: M LAB 17:31
PROVIDERS: ATTEND Podiatrist
DX: M20.12 Hallux valgus (acquired), left foot (principal); M79.672 Pain in left foot

== ENCOUNTER → 2022-09-03 | Outpatient (CLI) | payer OTHER ==
[~2022-09-03] MED LIST changes: +BUSP15TA47 PO; +FAMO20TA PO; +MELO15TA28 PO; +MODA100T13 PO
== END ==
LOC: M LABSMTC 07:35
PROVIDERS: ATTEND Anesthesiology
DX: Z01.812 Encounter for preprocedural laboratory examination (principal); Z20.822 Contact with and (suspected) exposure to COVID-19

== ENCOUNTER → 2022-09-06 | Outpatient (CLI) | payer OTHER | LOC: M LAB 17:54 | PROVIDERS: ATTEND Podiatrist | DX: D57.819 Other sickle-cell disorders with crisis, unspecified (principal) ==

== ENCOUNTER 2022-09-07 06:07 | Day surgery (SDC) | payer OTHER ==
[~2022-09-07] VITALS: Ht 165.1 cm; Wt 75.7 kg
[2022-09-07] MEDS ORDERED: ceFAZolin SOD 2 GM in IV 1 EA IV ONE (06:40)
[2022-09-07] MEDS ORDERED: LR 1,000 ML IV SCH (06:45)
[2022-09-07] MEDS ORDERED: MIDAZOLAM INJ 2MG/2ML VIAL As Ordered ONE (06:49)
[2022-09-07] MEDS ORDERED: fentaNYL 100 MCG/2 ML INJECTION As Ordered ONE (06:49)
[2022-09-07] MEDS ORDERED: LIDOCAINE 2% 100MG/5ML SDV (FOR ANES.) As Ordered ONE (06:50)
[2022-09-07] MEDS ORDERED: ONDANSETRON 4MG 2ML VIAL As Ordered ONE (06:50)
[2022-09-07] MEDS ORDERED: ACETAMINOPHEN 1000MG 100ML IV BAG As Ordered ONE (06:50)
[2022-09-07] MEDS ORDERED: propofoL 200 MG/20 ML VIAL As Ordered ONE (06:50)
[2022-09-07] MEDS ORDERED: KETOROLAC 60MG 2ML VIAL As Ordered ONE (06:51)
[2022-09-07] MEDS ORDERED: LIDOCAINE 2% MDV 20ML VIAL As Ordered ONE (07:03)
[2022-09-07] MEDS ORDERED: BUPIVACAINE HCL 0.5% 30ML VIAL As Ordered ONE (07:03)
[2022-09-07] MEDS ORDERED: GENTAMICIN SULF 80MG/2ML VIAL As Ordered ONE (07:05)
[2022-09-07 10:03] VITALS: BP 128/68
== END 2022-09-07 10:46 | disposition home or self-care (01) ==
LOC: M SDC 06:07
PROVIDERS: ATTEND Podiatrist
DX: M20.12 Hallux valgus (acquired), left foot (principal); K21.9 Gastro-esophageal reflux disease without esophagitis; K59.00 Constipation, unspecified; F41.9 Anxiety disorder, unspecified; F32.A Depression, unspecified; F43.10 Post-traumatic stress disorder, unspecified; G43.909 Migraine, unspecified, not intractable, without status migrainosus; G47.33 Obstructive sleep apnea (adult) (pediatric); Z79.899 Other long term (current) drug therapy
CPT/HCPCS: 28299; 73630; C1713; J0131; J0690; J1100; J2250; J2405; J3010

== ENCOUNTER → 2023-08-06 | Outpatient (CLI) | payer OTHER | LOC: M PAIN 11:00 | PROVIDERS: ATTEND Nurse Practitioner Family | DX: M50.10 Cervical disc disorder with radiculopathy, unspecified cervical region (principal); G89.29 Other chronic pain; F31.9 Bipolar disorder, unspecified; F41.9 Anxiety disorder, unspecified; E78.00 Pure hypercholesterolemia, unspecified; Z87.891 Personal history of nicotine dependence; Z79.1 Long term (current) use of non-steroidal anti-inflammatories (NSAID); Z79.899 Other long term (current) drug therapy ==

== ENCOUNTER → 2024-03-12 | Outpatient (CLI) | payer OTHER ==
[~2024-03-12] MED LIST changes: +FLUO-365; -FLUO20CA22
[2024-03-12 12:57] LABS: EOS # 0.2 10^3/uL (0.0-0.5)
[2024-03-14 03:52] LABS: BERMUDA GRASS IGE < 0.10 kU/L (<0.10); BIRCH IGE < 0.10 kU/L (<0.10); COMMON RAGWEED SHORT IGE < 0.10 kU/L (<0.10); D001 IGE D PTERONYSSINUS < 0.10 kU/L (<0.10); D002-IGE D FARINAE < 0.10 kU/L (<0.10); E001-IGE CAT DANDER < 0.10 kU/L (<0.10); E005-IGE DOG DANDER < 0.10 kU/L (<0.10); ELM IGE < 0.10 kU/L (<0.10); I006 IGE COCKROACH < 0.10 kU/L (<0.10); IMMUNOGLOBULIN E FOR ALLERGENS 12 kU/L (<OR=114); M002 IGE CLADOSPORIUM HERBARU < 0.10 kU/L (<0.10); M003 IGE ASPERGILLUS FUMIGATU < 0.10 kU/L (<0.10); M006 IGE ALTERNIA ALTERNATA < 0.10 kU/L (<0.10); M1-PENICILLIUM NOTATUM < 0.10 kU/L (<0.10); MOUSE URINE IGE < 0.10 kU/L (<0.10); MUGWORT IGE < 0.10 kU/L (<0.10); OAK IGE < 0.10 kU/L (<0.10); ROUGH PIGWEED IGE < 0.10 kU/L (<0.10); SHEEP SORREL IGE < 0.10 kU/L (<0.10); SYCAMORE IGE < 0.10 kU/L (<0.10); T001-IGE MAPLE BOX ELDER < 0.10 kU/L (<0.10); T006-IGE MOUNTAIN CEDAR < 0.10 kU/L (<0.10); T014 COTTONWOOD IGE < 0.10 kU/L (<0.10); TIMOTHY GRASS IGE 0.15 kU/L (<0.10); WALNUT TREE IGE < 0.10 kU/L (<0.10); WHITE ASH IGE < 0.10 kU/L (<0.10); WHITE MULBERRY IGE < 0.10 kU/L (<0.10)
== END ==
LOC: M PLALAB 09:04
PROVIDERS: ATTEND Internal Medicine Pulmonary Disease
DX: J45.30 Mild persistent asthma, uncomplicated (principal)

== ENCOUNTER → 2024-06-03 | Outpatient (CLI) | payer OTHER ==
[~2024-06-03] MED LIST changes: +GABA-1172; -GABA-282; -GOOD8.6T2 PO; +META-10; -META1TAB22; +SENN-117 PO
[2024-06-03 13:20] LABS: EOS # 0.2 10^3/uL (0.0-0.5)
[2024-06-05 19:12] LABS: BERMUDA GRASS IGE < 0.10 kU/L (<0.10); BIRCH IGE < 0.10 kU/L (<0.10); COMMON RAGWEED SHORT IGE < 0.10 kU/L (<0.10); D001 IGE D PTERONYSSINUS < 0.10 kU/L (<0.10); D002-IGE D FARINAE < 0.10 kU/L (<0.10); E001-IGE CAT DANDER < 0.10 kU/L (<0.10); E005-IGE DOG DANDER < 0.10 kU/L (<0.10); ELM IGE < 0.10 kU/L (<0.10); I006 IGE COCKROACH < 0.10 kU/L (<0.10); IMMUNOGLOBULIN E FOR ALLERGENS 12 kU/L (<OR=114); M002 IGE CLADOSPORIUM HERBARU < 0.10 kU/L (<0.10); M003 IGE ASPERGILLUS FUMIGATU < 0.10 kU/L (<0.10); M006 IGE ALTERNIA ALTERNATA < 0.10 kU/L (<0.10); M1-PENICILLIUM NOTATUM < 0.10 kU/L (<0.10); MOUSE URINE IGE < 0.10 kU/L (<0.10); MUGWORT IGE < 0.10 kU/L (<0.10); OAK IGE < 0.10 kU/L (<0.10); ROUGH PIGWEED IGE < 0.10 kU/L (<0.10); SHEEP SORREL IGE < 0.10 kU/L (<0.10); SYCAMORE IGE < 0.10 kU/L (<0.10); T001-IGE MAPLE BOX ELDER < 0.10 kU/L (<0.10); T006-IGE MOUNTAIN CEDAR < 0.10 kU/L (<0.10); T014 COTTONWOOD IGE < 0.10 kU/L (<0.10); TIMOTHY GRASS IGE < 0.10 kU/L (<0.10); WALNUT TREE IGE < 0.10 kU/L (<0.10); WHITE ASH IGE < 0.10 kU/L (<0.10); WHITE MULBERRY IGE < 0.10 kU/L (<0.10)
== END ==
LOC: M PLALAB 08:54
PROVIDERS: ATTEND Internal Medicine Pulmonary Disease
DX: J45.30 Mild persistent asthma, uncomplicated (principal)